=== PATIENT | male | born 1965 | race Caucasian/White ===

== ENCOUNTER → 2016-12-07 | Outpatient (CLI) | payer OTHER ==
--- NOTE | 2016-12-07 20:00 | CT ---
EXAMINATION TYPE: CT sinus wo con DATE OF EXAM: 12/07/2016 7:52 PM COMPARISON: NONE HISTORY: Facial pain and congestion CT DLP: 578 mGycm Automated exposure control for dose reduction was used. FINDINGS: There is extensive mucosal thickening in the ethmoid and frontal sinuses. I see no focal bone destruc tion. There is mild mucosal thickening in both maxillary sinuses. The maxilla is intact. Nasal septum deviates slightly to the right side. There is also some mucosal thickening in the sphenoid sinus. Th e orbital margins are intact. IMPRESSION: THERE IS PANSINUSITIS WITH MORE SEVERE INVOLVEMENT OF THE FRONTAL AND ETHMOID SINUSES. THERE IS PROBA CASSANDRA OBSTRUCTION OF THE OSTIOMEATAL COMPLEX BILATERALLY.
== END | disposition home or self-care (01) ==
LOC: RADCTMAIN 19:30
PROVIDERS: ATTEND Otolaryngology
DX: J32.4 Chronic pansinusitis (principal)
CPT/HCPCS: 70486

== ENCOUNTER 2016-12-15 08:26 | Day surgery (SDC) | payer OTHER ==
[2016-12-13 08:40] VITALS: BMI 36.6
--- NOTE | 2016-12-15 06:08 | HP ---
DATE OF ADMISSION: Chief complaint is nasal stuffiness. HISTORY OF PRESENT ILLNESS: This patient is a 50-year-old male who was recently seen in my office complaining of having difficulty breathing through the right side of his nose. The patient states that the symptoms started approximately 3 months ago. He was seen by his family physician who placed him initially on a nasal steroid, Flonase, and the patient used this medication faithfully with no improvement. He denies any history of recurrent sinus infections and he is a nonsmoker. His stated that he snores quite loudly at night and also has been noted to stop breathing occasionally at night. He has not had a sleep study done yet. He is a known asthmatic and currently is on medication namely albuterol. He uses this medication on a p.r.n. basis. He denies any known aspirin sensitivity. At the time that he was seen in my office, clinical examination intranasally revealed moderate septal deviation and the right nasal vault was completely filled with nasal polyps. Inspection of the left side did not reveal any evidence of any obvious nasal polyps. It was recommended that the patient undergo a right intranasal polypectomy under general anesthesia. Past medical history reveals the patient has no known allergies to medications. Current medications include albuterol. He has a history of asthma, but no history of diabetes mellitus or hypertension. He has not had any previous surgeries. The review of systems is positive with respect to the respiratory system in that the patient is a known asthmatic. Otherwise review of systems is noncontributory. PHYSICAL EXAMINATION: This patient is a pleasant 50-year-old male who is alert and cooperative. HEENT EXAMINATION: Patient is normocephalic. Tympanic membranes are normal. Middle ear spaces are free of any fluid or infection. Pupils are equal, round, and reactive to light and accommodation. Extraocular movements are within normal limits. Intranasal examination reveals moderate to severe septal deviation with bilateral compensatory hypertrophy of the inferior turbinates and the right nasal vault completely filled with nasal polyps. Examination of the left nasal vault does not reveal any nasal polyps. Examination of the oropharynx, palpation of the neck and cranial nerves 2 through 12 are all within normal limits. CHEST/CARDIOVASCULAR: Both lung collins are clear to percussion and auscultation. Patient is in regular sinus rhythm. S1 and S2 are present without evidence of any murmurs, S3s or S4s. Peripheral pulses are bilaterally symmetrical and within normal limits. ABDOMEN: There is no evidence of masses, megaly or tenderness. The abdomen is soft. Skin is unremarkable. MUSCULOSKELETAL AND NEUROLOGICAL: Within normal limits. RECTAL EXAM: The rectal exam is deferred at this time because the patient has this done on a regular basis at his family physician's office. The remainder of the physical exam is essentially unremarkable. IMPRESSION: Nasal polyposis, possible bilateral nasal polyposis. PLAN: The patient is scheduled to undergo a nasal polypectomy/possible bilateral nasal polypectomy under general anesthesia in the a.m. ATTENTION RNS IN THE PRESURGICAL AREA: I have not ordered nor has my office ordered any preoperative prophylactic antibiotics for this patient. The only preoperative order that I have written is for the patient to receive Ofirmev 1000 mg IV, to be given once an intravenous line has been established. If any preoperative prophylactic antibiotics are sent to the presurgical area for this patient they should be returned to pharmacy and make sure that the patient's account is credited appropriately. Again, I have not ordered any preoperative prophylactic antibiotics on this patient. I have explained the operation/procedure to the patient, including the risks, benefits, side effects, alternative therapies (including not receiving the proposed treatment or service), the likelihood of the patient achieving his/her goals, and potential recuperation problems for the procedure/sedation/analgesia, as well as any blood products, if indicated. I also explained to the patient the risks, benefits, and side effects of the alternatives, as well as the risks related to not receiving the proposed procedure, care treatment or services.
[~2016-12-15 08:26] MED LIST: DEXAMETHASONE SOD PHOSPHATE 10 MG/ML 1 ML VIAL IV ONE; HYDROmorphone 1 MG/ML 1 ML SYRINGE IVP PRN; MIDAZOLAM 2 MG/2 ML VIAL IV PRN; ONDANSETRON 4 MG/2 ML VIAL IVP ONE; SCOPOLAMINE 1.5MG/72HR PATCH TRANSDERM ONE; ceFAZolin 3 GM in SODIUM CHLORIDE 0.9% 100 ML IVPB ONE; metroNIDAZOLE-NS PMX 500 MG in SALINE 1 100ML.BAG IVPB ONE
[2016-12-15 08:43] VITALS: TEMP 97.9
[2016-12-15] MEDS: LACTATED RINGERS 1,000 ML IV SCH ×2 (09:00→10:14)
[2016-12-15] MEDS: ACETAMINOPHEN IV (For NPO) 1,000 MG in EMPTY BAG 1 BAG IVPB ONE ×2 (09:09→10:07)
[2016-12-15] MEDS ORDERED: GLYCOPYRROLATE 0.2 MG/ML 2 ML VIAL ONE (10:14)
[2016-12-15] MEDS ORDERED: DEXAMETHASONE SOD PHOS (MDV) 100 MG/10 ML VIAL ONE (10:14)
[2016-12-15] MEDS ORDERED: SUCCINYLCHOLINE CHLORIDE 100 MG/5 ML SYR IV ONE (10:14)
[2016-12-15] MEDS ORDERED: NEOSTIGMINE 1 MG/ML 10 ML VIAL ONE (10:14)
[2016-12-15] MEDS ORDERED: HYDROmorphone (PF) 1 MG/ML ONE (10:14)
[2016-12-15] MEDS ORDERED: PROPOFOL 10 MG/ML 20 ML VIAL IV ONE (10:14)
[2016-12-15] MEDS ORDERED: LIDOCAINE 1% INJ 10MG/ML (20 ML MDV) ONE (10:14)
[2016-12-15] MEDS ORDERED: fentaNYL (PF) 50 MCG/ML 2 ML AMP ONE (10:14)
[2016-12-15] MEDS ORDERED: ROCURONIUM BROMIDE 10 MG/ML 10 ML VIAL IV ONE (10:14)
[2016-12-15] MEDS ORDERED: MIDAZOLAM 2 MG/2 ML VIAL ONE (10:14)
[2016-12-15] MEDS ORDERED: OXYMETAZOLINE 0.05% NASL SPRAY 15 ML NASAL ONE (10:50)
[2016-12-15] MEDS ORDERED: LACTATED RINGERS 1,000 ML IV ONE ×3 (11:51→14:00)
[2016-12-15] MEDS ORDERED: PROMETHAZINE INJ 25 MG/ML 1 ML VIAL IVPB ONE (12:47)
[2016-12-15 13:23] VITALS: RESP 18
[2016-12-15 14:36] VITALS: BP 138/92; PULSE 91
--- NOTE | 2016-12-17 18:16 | OP ---
DATE OF SERVICE: 12/15/2016 SURGEON: CRISELDA SILVER MD FUR FINISHER: PREOPERATIVE DIAGNOSIS: Right nasal polyposis. POSTOPERATIVE DIAGNOSIS: Bilateral nasal polyposis; final pathology pending. OPERATION: Bilateral intranasal polypectomy. ANESTHESIA: General. ESTIMATED BLOOD LOSS: Less than 25 mL. SPECIMENS REMOVED: COMPLICATIONS: None. OPERATIVE FINDINGS: OPERATIVE PROCEDURE: The patient was placed on the operating table in the supine position after uneventful induction and endotracheal intubation, satisfactory general anesthesia was obtained. Next, the patient's face was draped in the usual and customary fashion. Following this, both nares were packed with Cottonoid which had been saturated with Afrin nasal spray and these were placed just inferior to the inferior turbinates on the right side and the left side respectively to achieve maximum vasoconstriction of the turbinates. These were left in place for a period of approximately 10 minutes and upon removing, inspection of the right and left nasal chamber revealed that the right and left nasal chamber contained a significant number of nasal polyps. Therefore, using the nasal polypectomy snares, initially the nasal polyps on the left side of the nose/septum were removed in the usual and customary fashion, with multiple passes of the nasal polypectomy snares. Smaller polyps that were seen posteriorly were ZAP vaporized using the suction cautery. Hemostasis was obtained using suction cautery. Next attention directed was directed to the left side, where there were even more polyps and once again using the nasal polypectomy snares and multiple passes with the snare, all of the larger nasal polyps were removed. In addition on the right side there appeared to be a right choanal nasal polyp was totally obstructing the posterior aspect of the right naris and extended into the right nasopharynx. This was removed also using the nasal snare. Hemostasis was obtained using suction cautery. Further, the small polyps again were vaporized using the suction cautery. Once again in addition to using the suction cautery for hemostasis, both nasal chambers were generously coated with the ( ) hemostatic powder in the usual fashion to provide additional control of any bleeding. All blood clots was suctioned from the nasopharynx in the usual fashion on the right and left side. Inspection revealed there was no evidence of any active bleeding nor were there any further polyps noted and therefore at this point a mustache dressing was applied and the procedure was terminated. There were no intraoperative complications. The patient tolerated the procedure well and was returned to the recovery room in satisfactory condition. All material removed from the right and left side of the nose was sent to Pathology in formalin for permanent sectioning by the Pathology Department.
== END 2016-12-15 14:54 | disposition home or self-care (01) ==
LOC: OR 08:26
PROVIDERS: ATTEND Otolaryngology
DX: J33.8 Other polyp of sinus (principal); J32.9 Chronic sinusitis, unspecified; J45.909 Unspecified asthma, uncomplicated; J34.2 Deviated nasal septum; J34.3 Hypertrophy of nasal turbinates
CPT/HCPCS: 88304; 30115; J2250; J2550; J2710; J2405; J2001; J3010; J1170; J1100; J0131; J0330; J2704

== ENCOUNTER 2023-01-10 08:49 | Day surgery (SDC) | payer OTHER ==
[2023-01-08 11:12] VITALS: BMI 39.3
[~2023-01-10 08:49] MED LIST changes: -DEXAMETHASONE SOD PHOSPHATE 10 MG/ML 1 ML VIAL IV ONE; -HYDROmorphone 1 MG/ML 1 ML SYRINGE IVP PRN; +LACTATED RINGERS 1,000 ML IV SCH; -MIDAZOLAM 2 MG/2 ML VIAL IV PRN; -ONDANSETRON 4 MG/2 ML VIAL IVP ONE; -SCOPOLAMINE 1.5MG/72HR PATCH TRANSDERM ONE; -ceFAZolin 3 GM in SODIUM CHLORIDE 0.9% 100 ML IVPB ONE; -metroNIDAZOLE-NS PMX 500 MG in SALINE 1 100ML.BAG IVPB ONE
[2023-01-10 09:27] VITALS: RESP 16; TEMP 97.8
[2023-01-10] MEDS ORDERED: PROPOFOL 10 MG/ML 20 ML VIAL IV ONE (10:45)
[2023-01-10] MEDS ORDERED: MIDAZOLAM 2 MG/2 ML VIAL ONE (10:45)
--- NOTE | 2023-01-10 11:06 | P.PCN ---
Date of Procedure: 01/10/23 Procedure(s) Performed: BRIEF HISTORY: Patient is a 57-year-old pleasant white male scheduled for an elective colonoscopy as a part of screening for colon cancer. PROCEDURE PERFORMED: Colonoscopy. PREOPERATIVE DIAGNOSIS: Screening for colon cancer. IV sedation per Anesthesia. PROCEDURE: After informed consent was obtained, the patient, was brought into the endoscopy unit. IV sedation was administered by Anesthesia under continuous monitoring. Digital rectal examination was normal. Initially the Olympus CF-160 flexible video colonoscope was then inserted in the rectum, gradually advanced into the cecum without any difficulty. Careful examination was performed as the scope was gradually being withdrawn. Ileocecal valve and the appendiceal orifice were visualized and appeared normal. Prep was excellent. Mucosa of the cecum, ascending colon, transverse colon, descending colon, sigmoid colon, and rectum appeared normal. Retroflexion was performed in the rectum and no lesions were seen. The patient tolerated the procedure well. IMPRESSION: Normal-appearing colon from rectum to cecum with no evidence of colorectal neoplasia. RECOMMENDATIONS: Findings of this examination were discussed with the patient as well as his family.. He was advised to have a repeat screening colonoscopy in 10 years.
[2023-01-10 11:27] VITALS: BP 107/74; PULSE 77
== END 2023-01-10 11:40 | disposition home or self-care (01) ==
LOC: ORWHC2ENDO 08:49
PROVIDERS: ATTEND Internal Medicine Gastroenterology
DX: Z12.11 Encounter for screening for malignant neoplasm of colon (principal); J45.909 Unspecified asthma, uncomplicated; K21.9 Gastro-esophageal reflux disease without esophagitis; E66.01 Morbid (severe) obesity due to excess calories; Z68.41 Body mass index [BMI] 40.0-44.9, adult; Z79.899 Other long term (current) drug therapy; Z79.51 Long term (current) use of inhaled steroids
CPT/HCPCS: 45378; J2250; J2704

== ENCOUNTER → 2024-08-05 | Outpatient (CLI) | payer OTHER ==
--- NOTE | 2024-08-05 13:57 | XR ---
EXAMINATION TYPE: XR lumbar spine 2 or 3V DATE OF EXAM: 08/05/2024 CLINICAL HISTORY: pain TECHNIQUE: Three views of the lumbar spine are submitted. COMPARISON: None. FINDINGS: There are 5 lumbar type vertebral bodies identified. The lumbar spine shows satisfactory alignment w ithout evidence of acute fracture or dislocation. Vertebral body heights are within normal limits. Severe degenerative narrowing with endplate sclerosis and mild ventral and dorsal spondylosis at L4-5 . Facet joint arthropathy. The overlying soft tissue appears unremarkable. IMPRESSION: No acute fracture or dislocation is seen in the lumbar spine. ICD 10 NO FRACTURE, INITIAL EVALUATION [facility], , 08/05/2024 1:55 PM
== END | disposition home or self-care (01) ==
LOC: RADXRMAIN 13:17
PROVIDERS: ATTEND Family Medicine
DX: M54.50 Low back pain, unspecified (principal)
CPT/HCPCS: 72100

== ENCOUNTER 2024-08-08 09:03 | Day surgery (SDC) | payer OTHER ==
[2024-08-07 09:21] VITALS: BMI 40.6
[~2024-08-08 09:03] MED LIST changes: -LACTATED RINGERS 1,000 ML IV SCH; +LIDOCAINE 1% (10MG/ML) FOR IV START INTRADERMA PRN
[2024-08-08 09:55] VITALS: RESP 16; TEMP 97.3
[2024-08-08] MEDS: LACTATED RINGERS 1,000 ML IV SCH (09:58)
[2024-08-08] MEDS ORDERED: LIDOCAINE 1% INJ 10MG/ML (20 ML MDV) ONE (11:02)
[2024-08-08] MEDS ORDERED: PROPOFOL 10 MG/ML 20 ML VIAL IV ONE (11:02)
--- NOTE | 2024-08-08 11:18 | P.PCN ---
Date of Procedure: 08/08/24 Procedure(s) Performed: BRIEF HISTORY: Patient is a 58-year-old, pleasant, white male scheduled for an upper endoscopy with a possible dilation as a part of evaluation of intermittent dysphagia to solids for the last 2 years duration. He is on omeprazole 20 mg daily for reflux symptoms.. PROCEDURE PERFORMED: Esophagogastroduodenoscopy with biopsy. PREOPERATIVE DIAGNOSIS: Intermittent dysphagia to solids of 2 years duration. IV sedation per anesthesia. PROCEDURE: After informed consent was obtained, the patient was brought into the endoscopy unit. IV sedation was administered by Anesthesia under continuous monitoring. Initially the Olympus GIF-140 video endoscope was inserted into the mouth. Esophagus intubated without any difficulty. It was gradually advanced into the stomach and duodenum and carefully examined. The bulb and the second part of the duodenum appeared normal. The scope at this time was withdrawn to the stomach, adequately insufflated with air, and upon careful examination, mucosa of the antrum, body, cardia and the fundus appeared normal. The scope was then withdrawn into the esophagus. Moderate size hiatal hernia noted. The GE junction was located at 35 cm from the incisors. There were linear erosions noted in the distal esophagus extending from 30 to 35 cm from the incisors and multiple biopsies were done from this area. Rest of the esophagus appeared normal and the patient tolerated the procedure well. No evidence of esophageal stricture identified. IMPRESSION: 1. Linear erosions of the distal esophagus consistent with LA grade B reflux esophagitis. 2. Moderate size hiatal hernia 3. No evidence of esophageal stricture. RECOMMENDATIONS: The findings of this examination were discussed with the patient as well as his family. He was advised to follow-up with the biopsy results. The meantime suggested that he increase omeprazole to 20 mg twice daily and follow antireflux measures.
[2024-08-08 11:41] VITALS: BP 117/79; PULSE 67
== END 2024-08-08 12:00 | disposition home or self-care (01) ==
LOC: ORWHC2ENDO 09:03
PROVIDERS: ATTEND Internal Medicine Gastroenterology
DX: K22.10 Ulcer of esophagus without bleeding (principal); K44.9 Diaphragmatic hernia without obstruction or gangrene; Z79.899 Other long term (current) drug therapy
CPT/HCPCS: 88305; 43239; J2003; J2704

== ENCOUNTER → 2024-10-30 | Outpatient (CLI) | payer OTHER ==
[2024-10-30 15:07] LABS: Blood Urea Nitrogen 11.5 mg/dL (9.0-27.0); Carbon Dioxide 24.8 mmol/L (21.6-31.8); Chloride 105 mmol/L (96-109); Potassium 4.6 mmol/L (3.5-5.5); Sodium 139 mmol/L (135-145)
[2024-10-30 15:43] LABS: HCT 41.7 % (39.6-50.0); HGB 12.2 g/dL (13.0-17.0); MCH 21.6 pg (27.0-32.0); MCHC 29.3 g/dL (32.0-37.0); MCV 73.8 FL (80.0-97.0); Mean Platelet Volume 10.2 FL (9.5-12.2); NRBC Per 100 WBC 0 X 10*3/uL (0.00-0.01); Platelet Count 328 X 10*3/uL (140-440); RBC 5.65 X 10*6/uL (4.40-5.60); RDW 20.1 % (11.5-14.5); WBC 5.93 X 10*3/uL (4.50-10.00)
== END | disposition home or self-care (01) ==
LOC: LABPAT 11:23
PROVIDERS: ATTEND Internal Medicine Interventional Cardiology
DX: I50.22 Chronic systolic (congestive) heart failure (principal)
CPT/HCPCS: 80051; 82565; 84520; 85027